=== PATIENT | male | born 2000 | race Caucasian/White ===

== ENCOUNTER 2021-10-28 00:48 | Emergency (ER) | payer SELFPAY ==
[~2021-10-28] VITALS: Ht 180.3 cm; Wt 68.0 kg
[2021-10-28 00:57] VITALS: BP 146/94
--- NOTE | 2021-10-28 01:00 | NUR ---
PT TAKEN TO BED 5
--- NOTE | 2021-10-28 01:02 | NUR ---
20 YO/M BIB SELF W C/O OF LAC TO R HAND X2 HOURS AGO W 10/10 PAIN S/P FALLING AND LANDING ON GLASS. PT DENIES ANY NUMBNESS/ TINGLING, FEVERS OR CHILLS. 2 LACS NOTED TO R PALM 1 APPROX 2.5 INCHES, 2 APPROX 1 INCH OPEN W BLEEDING CONTROLLED. + SENSATION, ABLE TO MOVE EXTREMITY. PT DENIES HEAD OR OTHER INJURIES. PT SITTIN GIN BED LOCKED IN LOWEST POSITION W X1 SIDERAIL UP . BREATHING EVEN AND UNLABORED. NAD NOTED, WILL COTNINUE TO MONITOR. PMH: DENIES ALLERGIES: DENIES TETANUS: UTD
[2021-10-28] MEDS: LIDOCAINE MPF 1% 10 MG/ML VIAL INJ ONE ×2 (01:10→03:17)
[2021-10-28] MEDS: IBUPROFEN 800 MG TAB PO ONE (01:28)
--- NOTE | 2021-10-28 01:33 | NUR ---
X-Ray at bedside.
[2021-10-28] MEDS ORDERED: LIDOCAINE MPF 1% 15 ML ONE (02:16)
--- NOTE | 2021-10-28 02:26 | NUR ---
X4 LIDOCAINE %1 VIALS HANDED TO ERMD FOR ADMINISTRATION IN PT PROCEDURE.
[2021-10-28] MEDS ORDERED: LIDOCAINE MPF 1% 5 ML ONE ×2 (02:35→02:47)
--- NOTE | 2021-10-28 02:39 | NUR ---
ERMD ORDERED X1 MORE LIDOCAINE 1% VIAL. VIAL DRAWN AND HANDED TO ERMD. ERMD AT BEDSIDE FOR PT PROCEDURE.
[2021-10-28] MEDS ORDERED: BACITRACIN OINT 500 UNITS/GM PKT TP ONE (02:41)
--- NOTE | 2021-10-28 02:43 | NUR ---
X2 BACTITRACIN OINT PACKETS ORDERED BY ERMD FOR PT WOUND.
--- NOTE | 2021-10-28 02:48 | NUR ---
X1 MORE LIDOCAINE %1 VIAL ORDERED BY ERMD, HANDED TO ERMD. ERMD AT BEDSIDE FOR PT PROCEDURE.
[2021-10-28] MEDS ORDERED: LIDOCAINE MPF 1% 10 ML ONE (02:56)
--- NOTE | 2021-10-28 02:58 | NUR ---
Note carolynn in EDM - 10/28/21 at 0300 by MEDJORGE ALBERTOK X2 MORE LIDOCAINE %1 VIAL ORDERED BY ERMD, HANDED TO ERMD. ERMD AT BEDSIDE FOR PT PROCEDURE. TOTAL OF 400MG LIDOCAINE 1% HANDED TO ERMD.
--- NOTE | 2021-10-28 02:58 | NUR ---
X2 MORE LIDOCAINE %1 VIAL ORDERED BY ERMD, HANDED TO ERMD. ERMD AT BEDSIDE FOR PT PROCEDURE. TOTAL OF 400MG LIDOCAINE 1% HANDED TO ERMD.
--- NOTE | 2021-10-28 03:00 | NUR ---
Note carolynn in EDM - 10/28/21 at 0301 by JAZZYK X2 MORE LIDOCAINE %1 VIAL ORDERED BY ERMD, HANDED TO ERMD. ERMD AT BEDSIDE FOR PT PROCEDURE. TOTAL OF 500MG LIDOCAINE 1% HANDED TO ERMD.
[2021-10-28] MEDS ORDERED: IBUP-2218 PO (03:09)
[2021-10-28] MEDS ORDERED: AMOX-999 PO (03:09)
[2021-10-28] MEDS: AMOXICILLIN 500 MG CAP PO ONE (03:16)
--- NOTE | 2021-10-28 03:20 | NUR ---
PT REPORTS HAND FEELING BETTER AT THIS TIME. HAND SUTURED BY ERMD. NO BLEEDING NOTED.
[2021-10-28 03:22] VITALS: BP 131/74
--- NOTE | 2021-10-28 03:22 | NUR ---
Patient discharged with v/s stable. Written and verbal after care instructions given and explained. Patient alert, oriented and verbalized understanding of instructions. Ambulatory with steady gait. All questions addressed prior to discharge. ID band removed. Patient advised to follow up with PMD. Rx of AUGMENTIN, IBUPROFEN given. Patient educated on indication of medication including possible reaction and side effects. Opportunity to ask questions provided and answered.
== END 2021-10-28 03:22 | disposition home or self-care (01) ==
LOC: MED 00:48
DX: S61.411A Laceration without foreign body of right hand, initial encounter (principal); F12.10 Cannabis abuse, uncomplicated; F11.10 Opioid abuse, uncomplicated; F17.210 Nicotine dependence, cigarettes, uncomplicated; W25.XXXA Contact with sharp glass, initial encounter; Y93.89 Activity, other specified; Y92.89 Other specified places as the place of occurrence of the external cause; Y99.8 Other external cause status
CPT/HCPCS: 12002; 73130; 99283; J2001; Q0092

== ENCOUNTER 2021-11-05 10:54 | Emergency (ER) | payer BC ==
[~2021-11-05] VITALS: Ht 177.8 cm; Wt 68.0 kg
[~2021-11-05 10:54] MED LIST: AMOX-999 PO; IBUP-2218 PO
--- NOTE | 2021-11-05 11:11 | NUR ---
AMBULATED TO BED 3
[2021-11-05 11:14] VITALS: BP 120/97
--- NOTE | 2021-11-05 11:20 | NUR ---
20 Y/O MALE HERE FOR WOUND CHECK TO RIGHT HAND LAC S/P SUTURES PLACED 10/27/21. NO ACTIVE BLEEDING NOTED, DENIES PAIN. DENIES SOB. DENIES CHEST PAIN. DENIES PMH NKA
--- NOTE | 2021-11-05 11:38 | NUR ---
DR ISSA AT BEDSIDE
[2021-11-05] MEDS ORDERED: BACITRACIN OINT 500 UNITS/GM PKT TP ONE (11:40)
--- NOTE | 2021-11-05 11:51 | NUR ---
EMT LOIS AT BEDSIDE DOING WOUND CARE
[2021-11-05 12:03] VITALS: BP 120/97
--- NOTE | 2021-11-05 12:03 | NUR ---
BACITRACIAN APPLIED TO LEFT PALM. NON ADHERENT DRESSING APPLIED AND WRAPPED IN GAUZE.
--- NOTE | 2021-11-05 12:04 | NUR ---
Patient discharged with INFORMATION FOR LACERATION CARE v/s stable. Written and verbal after care instructions given and explained. Patient verbalized understanding. Ambulatory with steady gait. All questions addressed prior to discharge. Advised to follow up with PMD. WORK NOTE HANDED TO PATIENT.
--- NOTE | 2021-11-05 12:10 | NUR ---
The patient's care was reviewed and supervised by Elena Grier RN.
== END 2021-11-05 12:03 | disposition home or self-care (01) ==
LOC: MED 10:54
DX: S61.411D Laceration without foreign body of right hand, subsequent encounter (principal); Z48.00 Encounter for change or removal of nonsurgical wound dressing; W25.XXXD Contact with sharp glass, subsequent encounter
CPT/HCPCS: 99282